=== PATIENT | female | born 1995 | race Caucasian/White ===

== ENCOUNTER 2017-11-21 19:19 | Inpatient (IN) | payer MEDICAID ==
[2017-11-21] MEDS ORDERED: cefTRIAXone 1 GM Vial IVPUSH ONE (19:59)
[2017-11-21] MEDS ORDERED: Ketorolac 30 MG/ML SDV IVPUSH ONE (19:59)
[2017-11-21] MEDS ORDERED: Sodium Chloride 0.9% 1,000 ML IV ONE (20:03)
--- NOTE | 2017-11-21 20:05 | EDM.PDOC ---
ED HPI GENERAL MEDICAL PROBLEM - General Chief Complaint: Genitourinary Problem Stated Complaint: KIDNEY INFECTION/[phone] Time Seen by Provider: 11/21/17 20:00 Source of Information: Reports: Patient History Limitations: Reports: No Limitations - History of Present Illness INITIAL COMMENTS - FREE TEXT/NARRATIVE: pt sleeping arousable states in lot of pain and feels very tired wants to sleep. Sx onset 3 days ago got worse today with h/o pyelo. Bilateral Flank Pain Score (Numeric/FACES): 10 - Related Data Allergies Allergy/AdvReac Type Severity Reaction Status Date / Time No Known Allergies Allergy Verified 11/21/17 19:26 Home Meds: Home Meds . [No Known Home Meds] 11/21/17 [History] Past Medical History Genitourinary History: Reports: Pyelonephritis - Past Surgical History HEENT Surgical History: Reports: Adenoidectomy, Tonsillectomy Social & Family History - Tobacco Use Smoking Status *Q: Current Every Day Smoker Years of Tobacco use: 5 Packs/Tins Daily: 0.5 - Caffeine Use Caffeine Use: Reports: Soda - Recreational Drug Use Recreational Drug Use: No ED ROS GENERAL - Review of Systems Review Of Systems: ROS reveals no pertinent complaints other than HPI. ED EXAM, RENAL/ - Physical Exam Exam: See Below Exam Limited By: No Limitations General Appearance: Alert, Mild Distress, Other (discomfort) Ears: Hearing Grossly Normal Throat/Mouth: Normal Voice, No Airway Compromise Head: Atraumatic Neck: Non-Tender, Full Range of Motion Respiratory/Chest: No Respiratory Distress Cardiovascular: Regular Rate, Rhythm GI/Abdominal: Soft, Non-Tender Back Exam: CVA Tenderness (L), CVA Tenderness (R) Neurological: Alert, Oriented, Normal Cognition, Normal Gait, No Motor/Sensory Deficits Psychiatric: Flat Affect Skin Exam: Warm, Dry, Normal Color Lymphatic: No Adenopathy Course - Vital Signs Last Recorded V/S: Last Vital Signs Temp 37.0 C 11/21/17 19:26 Pulse 122 H 11/21/17 19:26 Resp 18 11/21/17 19:26 BP 136/77 11/21/17 19:26 Pulse Ox 100 11/21/17 19:26 - Orders/Labs/Meds Orders: Active Orders 24 hr Category Date Time Status Abdomen Pelvis w Cont [CT] Urgent Exams 11/21/17 20:18 Taken Labs: Laboratory Tests 11/21/17 11/21/17 11/21/17 Range/Units 19:23 19:23 19:23 WBC (5.0-10.0) 10^3/uL RBC (4.2-5.4) 10^6/uL Hgb (12.0-16.0) g/dL Hct (37.0-47.0) % MCV (80-100) fL MCH (27.0-34.0) pg MCHC (33.0-35.0) g/dL Plt Count (150-450) 10^3/uL Neut % (Auto) (42.2-75.2) % Lymph % (Auto) (20.5-50.1) % [place] % (Auto) (2-8) % Eos % (Auto) (1.0-3.0) % Baso % (Auto) (0.0-1.0) % Sodium (135-145) mmol/L Potassium (3.6-5.0) mmol/L Chloride (101-111) mmol/L Carbon Dioxide (21.0-31.0) mmol/L Anion Gap BUN (7-18) mg/dL Creatinine (0.6-1.3) mg/dL Est Cr Clr Drug Dosing mL/min Estimated GFR (MDRD) BUN/Creatinine Ratio Glucose (74-105) mg/dL Lactic Acid (0.5-2.2) mmol/L Calcium (8.4-10.2) mg/dl Total Bilirubin (0.2-1.0) mg/dL AST (10-42) IU/L ALT (10-60) IU/L Alkaline Phosphatase (42-121) IU/L Total Protein (6.7-8.2) g/dl Albumin (3.2-5.5) g/dl Globulin Albumin/Globulin Ratio Urine Color Yellow (YELLOW) Urine Appearance Slightly cloudy (CLEAR) Urine pH 6.0 (5.0-9.0) Ur Specific [place] 1.025 (1.005-1.030) Urine Protein 100 H (NEGATIVE) Urine Glucose (UA) Negative (NEGATIVE) Urine Ketones >=160 H (NEGATIVE) Urine Occult Blood Moderate H (NEGATIVE) Urine Nitrite Negative (NEGATIVE) Urine Bilirubin Negative (NEGATIVE) Urine Urobilinogen 0.2 (0.2-1.0) mg/dL Ur Leukocyte Esterase Negative (NEGATIVE) Urine RBC 5-10 H /HPF Urine WBC 0-5 (0-5/HPF) /HPF Ur Epithelial Cells Moderate H /HPF Urine Bacteria Many H (0-FEW/HPF) /HPF Urine Mucus Moderate H /LPF Urinalysis Comment Urine HCG, Qual Negative Urine Opiates Screen Negative (NEGATIVE) Ur Oxycodone Screen Negative (NEGATIVE) Urine Methadone Screen Negative (NEGATIVE) Ur Barbiturates Screen Negative (NEGATIVE) U Tricyclic Antidepress Negative (NEGATIVE) Ur Phencyclidine Scrn Negative (NEGATIVE) Ur Amphetamine Screen Positive H (NEGATIVE) U Methamphetamines Scrn Positive H (NEGATIVE) Urine MDMA Screen Negative (NEGATIVE) U Benzodiazepines Scrn Negative (NEGATIVE) Urine Cocaine Screen Negative (NEGATIVE) U Marijuana (THC) Screen Positive H (NEGATIVE) 11/21/17 11/21/17 11/21/17 Range/Units 19:52 19:52 19:52 WBC 21.6 H (5.0-10.0) 10^3/uL RBC 5.19 (4.2-5.4) 10^6/uL Hgb 14.4 (12.0-16.0) g/dL Hct 42.9 (37.0-47.0) % MCV 82.7 (80-100) fL MCH 27.7 (27.0-34.0) pg MCHC 33.6 (33.0-35.0) g/dL Plt Count 241 (150-450) 10^3/uL Neut % (Auto) 86.7 H (42.2-75.2) % Lymph % (Auto) 7.2 L (20.5-50.1) % [place] % (Auto) 6.0 (2-8) % Eos % (Auto) 0.0 L (1.0-3.0) % Baso % (Auto) 0.1 (0.0-1.0) % Sodium 130 L (135-145) mmol/L Potassium 3.5 L (3.6-5.0) mmol/L Chloride 94 L (101-111) mmol/L Carbon Dioxide 26.0 (21.0-31.0) mmol/L Anion Gap 13.5 BUN 5 L (7-18) mg/dL Creatinine 0.7 (0.6-1.3) mg/dL Est Cr Clr Drug Dosing 113.43 mL/min Estimated GFR (MDRD) > 60 BUN/Creatinine Ratio 7.14 Glucose 107 H (74-105) mg/dL Lactic Acid 1.2 (0.5-2.2) mmol/L Calcium 9.1 (8.4-10.2) mg/dl Total Bilirubin 1.0 (0.2-1.0) mg/dL AST 18 (10-42) IU/L ALT 13 (10-60) IU/L Alkaline Phosphatase 78 (42-121) IU/L Total Protein 8.6 H (6.7-8.2) g/dl Albumin 4.1 (3.2-5.5) g/dl Globulin 4.5 Albumin/Globulin Ratio 0.91 Urine Color (YELLOW) Urine Appearance (CLEAR) Urine pH (5.0-9.0) Ur Specific [place] (1.005-1.030) Urine Protein (NEGATIVE) Urine Glucose (UA) (NEGATIVE) Urine Ketones (NEGATIVE) Urine Occult Blood (NEGATIVE) Urine Nitrite (NEGATIVE) Urine Bilirubin (NEGATIVE) Urine Urobilinogen (0.2-1.0) mg/dL Ur Leukocyte Esterase (NEGATIVE) Urine RBC /HPF Urine WBC (0-5/HPF) /HPF Ur Epithelial Cells /HPF Urine Bacteria (0-FEW/HPF) /HPF Urine Mucus /LPF Urinalysis Comment Urine HCG, Qual Urine Opiates Screen (NEGATIVE) Ur Oxycodone Screen (NEGATIVE) Urine Methadone Screen (NEGATIVE) Ur Barbiturates Screen (NEGATIVE) U Tricyclic Antidepress (NEGATIVE) Ur Phencyclidine Scrn (NEGATIVE) Ur Amphetamine Screen (NEGATIVE) U Methamphetamines Scrn (NEGATIVE) Urine MDMA Screen (NEGATIVE) U Benzodiazepines Scrn (NEGATIVE) Urine Cocaine Screen (NEGATIVE) U Marijuana (THC) Screen (NEGATIVE) Meds: Medications Discontinued Medications Generic Name Dose Route Start Last Admin Trade Name Yahir PRN Reason Stop Dose Admin Ceftriaxone Sodium 1 gm 11/21/17 19:59 11/21/17 20:10 Rocephin IVPUSH 11/21/17 20:00 1 gm ONETIME ONE Administration Sodium Chloride 1,000 mls @ 999 mls/hr 11/21/17 20:03 11/21/17 20:09 Normal Saline IV 11/21/17 21:03 999 mls/hr .BOLUS ONE Administration Iopamidol 100 ml 11/21/17 20:18 11/21/17 20:25 Isovue-300 (61%) IVPUSH 11/21/17 20:19 100 ml ONETIME ONE Administration Ketorolac Tromethamine 15 mg 11/21/17 19:59 11/21/17 20:09 Toradol IVPUSH 11/21/17 20:00 15 mg ONETIME ONE Administration - Re-Assessments/Exams Free Text/Narrative Re-Assessment/Exam: 11/21/17 21:[address] Corral who kindly admitted pt. Departure - Departure Time of Disposition: 21:43 Disposition: Admitted As Inpatient 66 Condition: Good Clinical Impression: Pyelonephritis - Discharge Information Forms: ED Department Discharge - My Orders Last 24 Hours: My Active Orders 11/21/17 20:18 Abdomen Pelvis w Cont [CT] Urgent - Assessment/Plan Last 24 Hours: My Active Orders 11/21/17 20:18 Abdomen Pelvis w Cont [CT] Urgent
[2017-11-21 20:16] LABS: ANION GAP 13.5; CHLORIDE,CL 94 mmol/L (101-111); SODIUM,NA 130 mmol/L (135-145)
[2017-11-21] MEDS ORDERED: Iopamidol 612 MG/ML 100 ML Bottle IVPUSH ONE (20:18)
[2017-11-21] MEDS ORDERED: Potassium Chloride 10 MEQ Tab.ER PO ONE (22:32)
[2017-11-21] MEDS ORDERED: Ibuprofen 400 MG Tab PO PRN (22:33)
[2017-11-21] MEDS ORDERED: Ketorolac 30 MG/ML SDV IM PRN (22:33)
[2017-11-21] MEDS ORDERED: Ondansetron 4 MG/2 ML SDV IV PRN (22:37)
--- NOTE | 2017-11-21 22:49 | PCM.HP ---
H&P History of Present Illness - General Date of Service: 11/21/17 Admit Problem/Dx: Admission Diagnosis/Problem Admission Diagnosis/Problem Pyelonephritis Source of Information: Patient History Limitations: Reports: No Limitations - History of Present Illness Initial Comments - Free Text/Narative: 22 yo F with PMH of cigarette smoking who presents with fever, flank pain, dysuria of 3 days duration. Patient says that she started feeling unwell 3 days ago. She couldn't get out of bed and had a lot of fatigue and malaise. She says she has had fever associated with chills and rigors She also has had dysuria described as an uncomfortable feeling when she urinates She had some nausea and vomiting yesterday, but this has resolved. Also has flank pain on both right and left sides that radiates into the groin NO hx of IVDU according to the patient Smokes cigarettes Bilateral Flank Pain Score (Numeric/FACES): 8 - Related Data Allergies/Adverse Reactions: Allergies Allergy/AdvReac Type Severity Reaction Status Date / Time No Known Allergies Allergy Verified 11/21/17 21:56 Home Medications: Home Meds . [No Known Home Meds] 11/21/17 [History] Past Medical History Genitourinary History: Reports: Pyelonephritis - Infectious Disease History Infectious Disease History: Reports: Chicken Pox - Past Surgical History HEENT Surgical History: Reports: Adenoidectomy, Tonsillectomy Social & Family History - Tobacco Use Smoking Status *Q: Current Every Day Smoker Years of Tobacco use: 5 Packs/Tins Daily: 0.5 Second Hand Smoke Exposure: Yes - Caffeine Use Caffeine Use: Reports: None - Recreational Drug Use Recreational Drug Use: No H&P Review of Systems - Review of Systems: Review Of Systems: ROS reveals no pertinent complaints other than HPI. General: Reports: Fever HEENT: Reports: No Symptoms. Denies: Sore Throat Pulmonary: Reports: No Symptoms. Denies: Shortness of Breath Cardiovascular: Reports: No Symptoms. Denies: Chest Pain Gastrointestinal: Reports: No Symptoms. Denies: Abdominal Pain Genitourinary: Reports: Dysuria, Flank Pain Musculoskeletal: Reports: No Symptoms Skin: Reports: No Symptoms Exam - Exam Exam: See Below - Vital Signs Vital Signs: Last Vital Signs Temp 36.9 C 11/21/17 21:55 Pulse 126 H 11/21/17 21:55 Resp 16 11/21/17 21:55 BP 112/75 11/21/17 21:55 Pulse Ox 100 11/21/17 21:55 Weight: 90.435 kg - Exam General: Alert, Oriented HEENT: Conjunctiva Clear, EACs Clear Neck: Supple, Trachea Midline Lungs: Clear to Auscultation, Normal Respiratory Effort Cardiovascular: Regular Rate, Regular Rhythm GI/Abdominal Exam: Other (positive CVA tenderness bilaterally) - Patient Data Lab Results Last 24 hrs: Laboratory Results - last 24 hr 11/21/17 11/21/17 11/21/17 Range/Units 19:23 19:23 19:23 WBC (5.0-10.0) 10^3/uL RBC (4.2-5.4) 10^6/uL Hgb (12.0-16.0) g/dL Hct (37.0-47.0) % MCV (80-100) fL MCH (27.0-34.0) pg MCHC (33.0-35.0) g/dL Plt Count (150-450) 10^3/uL Neut % (Auto) (42.2-75.2) % Lymph % (Auto) (20.5-50.1) % [place] % (Auto) (2-8) % Eos % (Auto) (1.0-3.0) % Baso % (Auto) (0.0-1.0) % Sodium (135-145) mmol/L Potassium (3.6-5.0) mmol/L Chloride (101-111) mmol/L Carbon Dioxide (21.0-31.0) mmol/L Anion Gap BUN (7-18) mg/dL Creatinine (0.6-1.3) mg/dL Est Cr Clr Drug Dosing mL/min Estimated GFR (MDRD) BUN/Creatinine Ratio Glucose (74-105) mg/dL Lactic Acid (0.5-2.2) mmol/L Calcium (8.4-10.2) mg/dl Total Bilirubin (0.2-1.0) mg/dL AST (10-42) IU/L ALT (10-60) IU/L Alkaline Phosphatase (42-121) IU/L Total Protein (6.7-8.2) g/dl Albumin (3.2-5.5) g/dl Globulin Albumin/Globulin Ratio Urine Color Yellow (YELLOW) Urine Appearance Slightly cloudy (CLEAR) Urine pH 6.0 (5.0-9.0) Ur Specific [place] 1.025 (1.005-1.030) Urine Protein 100 H (NEGATIVE) Urine Glucose (UA) Negative (NEGATIVE) Urine Ketones >=160 H (NEGATIVE) Urine Occult Blood Moderate H (NEGATIVE) Urine Nitrite Negative (NEGATIVE) Urine Bilirubin Negative (NEGATIVE) Urine Urobilinogen 0.2 (0.2-1.0) mg/dL Ur Leukocyte Esterase Negative (NEGATIVE) Urine RBC 5-10 H /HPF Urine WBC 0-5 (0-5/HPF) /HPF Ur Epithelial Cells Moderate H /HPF Urine Bacteria Many H (0-FEW/HPF) /HPF Urine Mucus Moderate H /LPF Urinalysis Comment Urine HCG, Qual Negative Urine Opiates Screen Negative (NEGATIVE) Ur Oxycodone Screen Negative (NEGATIVE) Urine Methadone Screen Negative (NEGATIVE) Ur Barbiturates Screen Negative (NEGATIVE) U Tricyclic Antidepress Negative (NEGATIVE) Ur Phencyclidine Scrn Negative (NEGATIVE) Ur Amphetamine Screen Positive H (NEGATIVE) U Methamphetamines Scrn Positive H (NEGATIVE) Urine MDMA Screen Negative (NEGATIVE) U Benzodiazepines Scrn Negative (NEGATIVE) Urine Cocaine Screen Negative (NEGATIVE) U Marijuana (THC) Screen Positive H (NEGATIVE) 11/21/17 11/21/17 11/21/17 Range/Units 19:52 19:52 19:52 WBC 21.6 H (5.0-10.0) 10^3/uL RBC 5.19 (4.2-5.4) 10^6/uL Hgb 14.4 (12.0-16.0) g/dL Hct 42.9 (37.0-47.0) % MCV 82.7 (80-100) fL MCH 27.7 (27.0-34.0) pg MCHC 33.6 (33.0-35.0) g/dL Plt Count 241 (150-450) 10^3/uL Neut % (Auto) 86.7 H (42.2-75.2) % Lymph % (Auto) 7.2 L (20.5-50.1) % [place] % (Auto) 6.0 (2-8) % Eos % (Auto) 0.0 L (1.0-3.0) % Baso % (Auto) 0.1 (0.0-1.0) % Sodium 130 L (135-145) mmol/L Potassium 3.5 L (3.6-5.0) mmol/L Chloride 94 L (101-111) mmol/L Carbon Dioxide 26.0 (21.0-31.0) mmol/L Anion Gap 13.5 BUN 5 L (7-18) mg/dL Creatinine 0.7 (0.6-1.3) mg/dL Est Cr Clr Drug Dosing 113.43 mL/min Estimated GFR (MDRD) > 60 BUN/Creatinine Ratio 7.14 Glucose 107 H (74-105) mg/dL Lactic Acid 1.2 (0.5-2.2) mmol/L Calcium 9.1 (8.4-10.2) mg/dl Total Bilirubin 1.0 (0.2-1.0) mg/dL AST 18 (10-42) IU/L ALT 13 (10-60) IU/L Alkaline Phosphatase 78 (42-121) IU/L Total Protein 8.6 H (6.7-8.2) g/dl Albumin 4.1 (3.2-5.5) g/dl Globulin 4.5 Albumin/Globulin Ratio 0.91 Urine Color (YELLOW) Urine Appearance (CLEAR) Urine pH (5.0-9.0) Ur Specific [place] (1.005-1.030) Urine Protein (NEGATIVE) Urine Glucose (UA) (NEGATIVE) Urine Ketones (NEGATIVE) Urine Occult Blood (NEGATIVE) Urine Nitrite (NEGATIVE) Urine Bilirubin (NEGATIVE) Urine Urobilinogen (0.2-1.0) mg/dL Ur Leukocyte Esterase (NEGATIVE) Urine RBC /HPF Urine WBC (0-5/HPF) /HPF Ur Epithelial Cells /HPF Urine Bacteria (0-FEW/HPF) /HPF Urine Mucus /LPF Urinalysis Comment Urine HCG, Qual Urine Opiates Screen (NEGATIVE) Ur Oxycodone Screen (NEGATIVE) Urine Methadone Screen (NEGATIVE) Ur Barbiturates Screen (NEGATIVE) U Tricyclic Antidepress (NEGATIVE) Ur Phencyclidine Scrn (NEGATIVE) Ur Amphetamine Screen (NEGATIVE) U Methamphetamines Scrn (NEGATIVE) Urine MDMA Screen (NEGATIVE) U Benzodiazepines Scrn (NEGATIVE) Urine Cocaine Screen (NEGATIVE) U Marijuana (THC) Screen (NEGATIVE) Result Diagrams: 11/21/17 19:52 11/21/17 19:52 Imaging Impressions Last 24 hrs: CT scan of abd pelvis: right sided pyelonephritis Problem List Initiated/Reviewed/Updated: Yes Orders Last 24hrs: Active Orders 24 hr Category Date Time Status Patient Status [ADT] Routine ADT 11/21/17 22:33 Ordered Ambulate [RC] ASDIRECTED Care 11/21/17 22:33 Ordered Oxygen Therapy [RC] PRN Care 11/21/17 22:33 Ordered VTE/DVT Education [RC] PER UNIT ROUTINE Care 11/21/17 22:33 Ordered Vital Signs [RC] Q4H Care 11/21/17 22:33 Ordered Regular Diet [DIET] Diet 11/21/17 Breakfast Ordered BASIC METABOLIC PANEL,BMP [CHEM] AM Lab 11/22/17 05:11 Ordered CBC WITH AUTO DIFF [HEME] AM Lab 11/22/17 05:11 Ordered CULTURE BLOOD [BC] Stat Lab 11/21/17 22:30 Ordered CULTURE BLOOD [BC] Stat Lab 11/21/17 22:30 Ordered CULTURE URINE [RM] Routine Lab 11/21/17 22:31 Ordered Acetaminophen [Tylenol] Med 11/21/17 22:33 Ordered 650 mg PO Q4H PRN Enoxaparin [Lovenox] Med 11/22/17 09:00 Ordered 40 mg SUBCUT DAILY Ibuprofen [Motrin] Med 11/21/17 22:33 Ordered 400 mg PO Q6H PRN Ketorolac [Toradol] Med 11/21/17 22:33 Ordered 15 mg IM Q6H PRN Lactated Ringers @ 125 MLS/HR(1000ml) Med 11/21/17 22:45 Ordered Lactated Ringers [Ringers, Lactated] 1,000 ml IV ASDIRECTED Ondansetron [Zofran] Med 11/21/17 22:37 Ordered 4 mg IV Q4H PRN Potassium Chloride [Klor-Con 10] Med 11/21/17 22:32 Once 40 meq PO ONETIME ONE cefTRIAXone [Rocephin] 1,000 mg Med 11/22/17 09:00 Ordered Sodium Chloride 0.9% [Normal Saline] 100 ml IV Q24H Blood Culture x2 Reflex Set [OM.PC] Stat Oth 11/21/17 22:30 Ordered Resuscitation Status Routine Resus Stat 11/21/17 22:33 Ordered Medication Orders Acetaminophen (Tylenol) 650 mg PO Q4H PRN PRN Reason: Pain (Mild 1-3)/fever Enoxaparin Sodium (Lovenox) 40 mg SUBCUT DAILY CHELY Ceftriaxone Sodium 1,000 mg/ (Sodium Chloride) 100 mls @ 200 mls/hr IV Q24H CHELY Lactated Ringer's (Ringers, Lactated) 1,000 mls @ 125 mls/hr IV ASDIRECTED CHELY Ibuprofen (Motrin) 400 mg PO Q6H PRN PRN Reason: Pain (moderate 4-6) Ketorolac Tromethamine (Toradol) 15 mg IM Q6H PRN PRN Reason: Pain (severe 7-10) Ondansetron HCl (Zofran) 4 mg IV Q4H PRN PRN Reason: Nausea/Vomiting Potassium Chloride (Klor-Con 10) 40 meq PO ONETIME ONE Stop: 11/21/17 22:33 Assessment/Plan Comment:: # Pyelonephritis # Sepsis POA blood culture x 2, urine culture IV fluid hydration IV ceftriaxone monitor vital signs closely Pain mgt IV Zofran PRN nausea and vomiting # Cigarette smoking Discussed ill effects of smoking with the patient and encouraged her to quit She refused nicotine patch # Hypokalemia replenish potassium orally # DVT ppx SC lovenox
[2017-11-21] MEDS: Lactated Ringers 1,000 ML IV SCH (23:07)
[2017-11-21] MEDS: Acetaminophen 325 MG Tab PO PRN (23:07)
[2017-11-22] MEDS: Lactated Ringers 1,000 ML IV SCH ×2 (06:59→15:42)
[2017-11-22 07:40] LABS: ANION GAP 13.8; CHLORIDE,CL 100 mmol/L (101-111); SODIUM,NA 130 mmol/L (135-145)
[2017-11-22] MEDS: Enoxaparin 40 MG/0.4 ML Syringe SUBCUT SCH (08:50)
--- NOTE | 2017-11-22 09:06 | PCM.PN ---
- General Info Date of Service: 11/22/17 Admission Dx/Problem (Free Text): Admission Diagnosis/Problem Admission Diagnosis/Problem Pyelonephritis Subjective Update: Patient says she feels "crappy" this morning. Not febrile overnight Still complains of flank pain - Review of Systems General: Denies: Fever HEENT: Reports: No Symptoms Pulmonary: Reports: No Symptoms Cardiovascular: Reports: No Symptoms Gastrointestinal: Reports: No Symptoms Genitourinary: Reports: Dysuria, Flank Pain Musculoskeletal: Reports: No Symptoms Skin: Reports: No Symptoms - Patient Data Vitals - Most Recent: Last Vital Signs Temp 37.6 C 11/22/17 08:16 Pulse 124 H 11/22/17 08:16 Resp 20 11/22/17 08:16 BP 122/63 11/22/17 08:16 Pulse Ox 99 11/22/17 08:16 Weight - Most Recent: 90.435 kg I&O - Last 24 Hours: Intake & Output 11/21/17 11/22/17 11/22/17 22:59 06:59 14:59 Intake Total 1540 996 Output Total 800 Balance 740 996 Lab Results Last 24 Hours: Laboratory Results - last 24 hr 11/21/17 11/21/17 11/21/17 Range/Units 19:23 19:23 19:23 WBC (5.0-10.0) 10^3/uL RBC (4.2-5.4) 10^6/uL Hgb (12.0-16.0) g/dL Hct (37.0-47.0) % MCV (80-100) fL MCH (27.0-34.0) pg MCHC (33.0-35.0) g/dL Plt Count (150-450) 10^3/uL Neut % (Auto) (42.2-75.2) % Lymph % (Auto) (20.5-50.1) % [place] % (Auto) (2-8) % Eos % (Auto) (1.0-3.0) % Baso % (Auto) (0.0-1.0) % Sodium (135-145) mmol/L Potassium (3.6-5.0) mmol/L Chloride (101-111) mmol/L Carbon Dioxide (21.0-31.0) mmol/L Anion Gap BUN (7-18) mg/dL Creatinine (0.6-1.3) mg/dL Est Cr Clr Drug Dosing mL/min Estimated GFR (MDRD) BUN/Creatinine Ratio Glucose (74-105) mg/dL Lactic Acid (0.5-2.2) mmol/L Calcium (8.4-10.2) mg/dl Total Bilirubin (0.2-1.0) mg/dL AST (10-42) IU/L ALT (10-60) IU/L Alkaline Phosphatase (42-121) IU/L Total Protein (6.7-8.2) g/dl Albumin (3.2-5.5) g/dl Globulin Albumin/Globulin Ratio Urine Color Yellow (YELLOW) Urine Appearance Slightly cloudy (CLEAR) Urine pH 6.0 (5.0-9.0) Ur Specific [place] 1.025 (1.005-1.030) Urine Protein 100 H (NEGATIVE) Urine Glucose (UA) Negative (NEGATIVE) Urine Ketones >=160 H (NEGATIVE) Urine Occult Blood Moderate H (NEGATIVE) Urine Nitrite Negative (NEGATIVE) Urine Bilirubin Negative (NEGATIVE) Urine Urobilinogen 0.2 (0.2-1.0) mg/dL Ur Leukocyte Esterase Negative (NEGATIVE) Urine RBC 5-10 H /HPF Urine WBC 0-5 (0-5/HPF) /HPF Ur Epithelial Cells Moderate H /HPF Urine Bacteria Many H (0-FEW/HPF) /HPF Urine Mucus Moderate H /LPF Urinalysis Comment Urine HCG, Qual Negative Urine Opiates Screen Negative (NEGATIVE) Ur Oxycodone Screen Negative (NEGATIVE) Urine Methadone Screen Negative (NEGATIVE) Ur Barbiturates Screen Negative (NEGATIVE) U Tricyclic Antidepress Negative (NEGATIVE) Ur Phencyclidine Scrn Negative (NEGATIVE) Ur Amphetamine Screen Positive H (NEGATIVE) U Methamphetamines Scrn Positive H (NEGATIVE) Urine MDMA Screen Negative (NEGATIVE) U Benzodiazepines Scrn Negative (NEGATIVE) Urine Cocaine Screen Negative (NEGATIVE) U Marijuana (THC) Screen Positive H (NEGATIVE) 11/21/17 11/21/17 11/21/17 Range/Units 19:52 19:52 19:52 WBC 21.6 H (5.0-10.0) 10^3/uL RBC 5.19 (4.2-5.4) 10^6/uL Hgb 14.4 (12.0-16.0) g/dL Hct 42.9 (37.0-47.0) % MCV 82.7 (80-100) fL MCH 27.7 (27.0-34.0) pg MCHC 33.6 (33.0-35.0) g/dL Plt Count 241 (150-450) 10^3/uL Neut % (Auto) 86.7 H (42.2-75.2) % Lymph % (Auto) 7.2 L (20.5-50.1) % [place] % (Auto) 6.0 (2-8) % Eos % (Auto) 0.0 L (1.0-3.0) % Baso % (Auto) 0.1 (0.0-1.0) % Sodium 130 L (135-145) mmol/L Potassium 3.5 L (3.6-5.0) mmol/L Chloride 94 L (101-111) mmol/L Carbon Dioxide 26.0 (21.0-31.0) mmol/L Anion Gap 13.5 BUN 5 L (7-18) mg/dL Creatinine 0.7 (0.6-1.3) mg/dL Est Cr Clr Drug Dosing 113.43 mL/min Estimated GFR (MDRD) > 60 BUN/Creatinine Ratio 7.14 Glucose 107 H (74-105) mg/dL Lactic Acid 1.2 (0.5-2.2) mmol/L Calcium 9.1 (8.4-10.2) mg/dl Total Bilirubin 1.0 (0.2-1.0) mg/dL AST 18 (10-42) IU/L ALT 13 (10-60) IU/L Alkaline Phosphatase 78 (42-121) IU/L Total Protein 8.6 H (6.7-8.2) g/dl Albumin 4.1 (3.2-5.5) g/dl Globulin 4.5 Albumin/Globulin Ratio 0.91 Urine Color (YELLOW) Urine Appearance (CLEAR) Urine pH (5.0-9.0) Ur Specific [place] (1.005-1.030) Urine Protein (NEGATIVE) Urine Glucose (UA) (NEGATIVE) Urine Ketones (NEGATIVE) Urine Occult Blood (NEGATIVE) Urine Nitrite (NEGATIVE) Urine Bilirubin (NEGATIVE) Urine Urobilinogen (0.2-1.0) mg/dL Ur Leukocyte Esterase (NEGATIVE) Urine RBC /HPF Urine WBC (0-5/HPF) /HPF Ur Epithelial Cells /HPF Urine Bacteria (0-FEW/HPF) /HPF Urine Mucus /LPF Urinalysis Comment Urine HCG, Qual Urine Opiates Screen (NEGATIVE) Ur Oxycodone Screen (NEGATIVE) Urine Methadone Screen (NEGATIVE) Ur Barbiturates Screen (NEGATIVE) U Tricyclic Antidepress (NEGATIVE) Ur Phencyclidine Scrn (NEGATIVE) Ur Amphetamine Screen (NEGATIVE) U Methamphetamines Scrn (NEGATIVE) Urine MDMA Screen (NEGATIVE) U Benzodiazepines Scrn (NEGATIVE) Urine Cocaine Screen (NEGATIVE) U Marijuana (THC) Screen (NEGATIVE) 11/22/17 11/22/17 Range/Units 07:11 07:11 WBC 20.7 H (5.0-10.0) 10^3/uL RBC 4.68 (4.2-5.4) 10^6/uL Hgb 13.0 (12.0-16.0) g/dL Hct 38.7 (37.0-47.0) % MCV 82.7 (80-100) fL MCH 27.8 (27.0-34.0) pg MCHC 33.6 (33.0-35.0) g/dL Plt Count 215 (150-450) 10^3/uL Neut % (Auto) 84.5 H (42.2-75.2) % Lymph % (Auto) 6.2 L (20.5-50.1) % [place] % (Auto) 9.2 H (2-8) % Eos % (Auto) 0.0 L (1.0-3.0) % Baso % (Auto) 0.1 (0.0-1.0) % Sodium 130 L (135-145) mmol/L Potassium 3.8 (3.6-5.0) mmol/L Chloride 100 L (101-111) mmol/L Carbon Dioxide 20.0 L (21.0-31.0) mmol/L Anion Gap 13.8 BUN 6 L (7-18) mg/dL Creatinine 0.7 (0.6-1.3) mg/dL Est Cr Clr Drug Dosing 113.43 mL/min Estimated GFR (MDRD) > 60 BUN/Creatinine Ratio Glucose 108 H (74-105) mg/dL Lactic Acid (0.5-2.2) mmol/L Calcium 8.5 (8.4-10.2) mg/dl Total Bilirubin (0.2-1.0) mg/dL AST (10-42) IU/L ALT (10-60) IU/L Alkaline Phosphatase (42-121) IU/L Total Protein (6.7-8.2) g/dl Albumin (3.2-5.5) g/dl Globulin Albumin/Globulin Ratio Urine Color (YELLOW) Urine Appearance (CLEAR) Urine pH (5.0-9.0) Ur Specific [place] (1.005-1.030) Urine Protein (NEGATIVE) Urine Glucose (UA) (NEGATIVE) Urine Ketones (NEGATIVE) Urine Occult Blood (NEGATIVE) Urine Nitrite (NEGATIVE) Urine Bilirubin (NEGATIVE) Urine Urobilinogen (0.2-1.0) mg/dL Ur Leukocyte Esterase (NEGATIVE) Urine RBC /HPF Urine WBC (0-5/HPF) /HPF Ur Epithelial Cells /HPF Urine Bacteria (0-FEW/HPF) /HPF Urine Mucus /LPF Urinalysis Comment Urine HCG, Qual Urine Opiates Screen (NEGATIVE) Ur Oxycodone Screen (NEGATIVE) Urine Methadone Screen (NEGATIVE) Ur Barbiturates Screen (NEGATIVE) U Tricyclic Antidepress (NEGATIVE) Ur Phencyclidine Scrn (NEGATIVE) Ur Amphetamine Screen (NEGATIVE) U Methamphetamines Scrn (NEGATIVE) Urine MDMA Screen (NEGATIVE) U Benzodiazepines Scrn (NEGATIVE) Urine Cocaine Screen (NEGATIVE) U Marijuana (THC) Screen (NEGATIVE) Med Orders - Current: Current Medications Acetaminophen (Tylenol) 650 mg PO Q4H PRN PRN Reason: Pain (Mild 1-3)/fever Last Admin: 11/21/17 23:07 Dose: 650 mg Enoxaparin Sodium (Lovenox) 40 mg SUBCUT DAILY [facility] Last Admin: 11/22/17 08:50 Dose: Not Given Ceftriaxone Sodium 1 gm/ (Sodium Chloride) 100 mls @ 200 mls/hr IV Q24H [facility] Lactated Ringer's (Ringers, Lactated) 1,000 mls @ 125 mls/hr IV ASDIRECTED [facility] Last Admin: 11/22/17 06:59 Dose: 125 mls/hr Ibuprofen (Motrin) 400 mg PO Q6H PRN PRN Reason: Pain (moderate 4-6) Ketorolac Tromethamine (Toradol) 15 mg IM Q6H PRN PRN Reason: Pain (severe 7-10) Ondansetron HCl (Zofran) 4 mg IV Q4H PRN PRN Reason: Nausea/Vomiting Discontinued Medications Ceftriaxone Sodium (Rocephin) 1 gm IVPUSH ONETIME ONE Stop: 11/21/17 20:00 Last Admin: 11/21/17 20:10 Dose: 1 gm Sodium Chloride (Normal Saline) 1,000 mls @ 999 mls/hr IV .BOLUS ONE Stop: 11/21/17 21:03 Last Admin: 11/21/17 20:09 Dose: 999 mls/hr Iopamidol (Isovue-300 (61%)) 100 ml IVPUSH ONETIME ONE Stop: 11/21/17 20:19 Last Admin: 11/21/17 20:25 Dose: 100 ml Ketorolac Tromethamine (Toradol) 15 mg IVPUSH ONETIME ONE Stop: 11/21/17 20:00 Last Admin: 11/21/17 20:09 Dose: 15 mg Potassium Chloride (Klor-Con 10) 40 meq PO ONETIME ONE Stop: 11/21/17 22:33 Last Admin: 11/21/17 23:06 Dose: 40 meq - Exam General: Alert, Oriented HEENT: Pupils Equal Lungs: Clear to Auscultation Cardiovascular: Regular Rate, Regular Rhythm GI/Abdominal Exam: Normal Bowel Sounds, Other (positive CVA tenderness) - Problem List Review Problem List Initiated/Reviewed/Updated: Yes - My Orders Last 24 Hours: My Active Orders 11/21/17 19:23 CULTURE URINE [RM] Routine 11/21/17 22:30 Blood Culture x2 Reflex Set [OM.PC] Stat 11/21/17 22:33 Patient Status [ADT] Routine Ambulate [RC] ASDIRECTED Oxygen Therapy [RC] PRN VTE/DVT Education [RC] PER UNIT ROUTINE Vital Signs [RC] Q4H Acetaminophen [Tylenol] 650 mg PO Q4H PRN Ibuprofen [Motrin] 400 mg PO Q6H PRN Ketorolac [Toradol] 15 mg IM Q6H PRN Resuscitation Status Routine 11/21/17 22:37 Ondansetron [Zofran] 4 mg IV Q4H PRN 11/21/17 22:45 Lactated Ringers [Ringers, Lactated] 1,000 ml IV ASDIRECTED 11/21/17 23:00 CULTURE BLOOD [BC] Stat 11/21/17 23:15 CULTURE BLOOD [BC] Stat 11/22/17 09:00 Enoxaparin [Lovenox] 40 mg SUBCUT DAILY 11/22/17 20:00 cefTRIAXone [Rocephin] 1 gm Sodium Chloride 0.9% [Normal Saline] 100 ml IV Q24H 11/23/17 05:11 BASIC METABOLIC PANEL,BMP [CHEM] AM CBC WITH AUTO DIFF [HEME] AM - Plan Plan:: # Pyelonephritis # Sepsis POA follow up on blood culture x 2, urine culture IV fluid hydration IV ceftriaxone monitor vital signs closely Pain mgt IV Zofran PRN nausea and vomiting # Cigarette smoking Discussed ill effects of smoking with the patient and encouraged her to quit She refused nicotine patch # Hypokalemia, resolved # DVT ppx SC lovenox
[2017-11-22] MEDS: Acetaminophen 325 MG Tab PO PRN ×2 (11:50→17:01)
[2017-11-22] MEDS ORDERED: cefTRIAXone 1 GM in Sodium Chloride 0.9% 100 ML IV SCH (20:00)
[2017-11-23] MEDS: Lactated Ringers 1,000 ML IV SCH ×2 (00:26→08:30)
[2017-11-23] MEDS: Acetaminophen 325 MG Tab PO PRN (06:39)
[2017-11-23 06:53] LABS: ANION GAP 11.8; CHLORIDE,CL 105 mmol/L (101-111); SODIUM,NA 136 mmol/L (135-145)
[2017-11-23] MEDS: Enoxaparin 40 MG/0.4 ML Syringe SUBCUT SCH (08:35)
[2017-11-23] MEDS ORDERED: Ketorolac 30 MG/ML SDV IVPUSH PRN (09:45)
--- NOTE | 2017-11-23 11:18 | PCM.DCSUM1 ---
Discharge Summary - Hospital Course Free Text/Narrative:: 22 yo F with PMH of cigarette smoking who presents with fever, flank pain, dysuria of [address] abd showed RT Pyelonephritis. Was treated with IV ceftriaxone for 3 days in the hospital and symptoms improved Blood cultures were negative. Urine cx grew gram pos cocci. Was discharged on oral Keflex and oral Cipro to complete an additional seven days course - Discharge Data Discharge Date: 11/23/17 Discharge Disposition: Home, Self-Care 01 Condition: Good - Patient Instructions Diet: Regular Diet as Tolerated Activity: As Tolerated Notify Provider of: Fever - Discharge Plan Prescriptions/Med Rec: Acetaminophen [Tylenol Extra Strength] 500 mg PO TID PRN 7 Days #21 tablet PRN Reason: Pain cephALEXin [Keflex] 500 mg PO Q8H 7 Days #21 cap Ciprofloxacin [Ciprofloxacin HCl] 250 mg PO BID 7 Days #14 tab Home Medications: Home Meds Acetaminophen [Tylenol Extra Strength] 500 mg PO TID PRN 7 Days #21 tablet 11/23 [Rx] Ciprofloxacin [Ciprofloxacin HCl] 250 mg PO BID 7 Days #14 tab 11/23/17 [Rx] cephALEXin [Keflex] 500 mg PO Q8H 7 Days #21 cap 11/23/17 [Rx] Patient Handouts: Pyelonephritis, Adult, [id number] - Discharge Summary/Plan Comment DC Time >30 min.: Yes - General Info Admission Dx/Problem (Free Text: Admission Diagnosis/Problem Admission Diagnosis/Problem Pyelonephritis Subjective Update: Not febrile overnight Symptoms have improved - Review of Systems General: Denies: Fever HEENT: Reports: No Symptoms Pulmonary: Reports: No Symptoms Cardiovascular: Reports: No Symptoms Gastrointestinal: Reports: No Symptoms Genitourinary: Denies: Dysuria - Patient Data Vitals - Most Recent: Last Vital Signs Temp 36.5 C 11/23/17 11:00 Pulse 95 11/23/17 11:00 Resp 20 11/23/17 11:00 BP 114/55 L 11/23/17 11:00 Pulse Ox 99 11/23/17 11:00 Weight - Most Recent: 90.435 kg I&O - Last 24 hours: Intake & Output 11/22/17 11/23/17 11/23/17 22:59 06:59 14:59 Intake Total 2164 2455 1000 Output Total 1250 975 Balance 914 1480 1000 Lab Results - Last 24 hrs: Laboratory Results - last 24 hr 11/23/17 11/23/17 Range/Units 06:23 06:23 WBC 11.4 H (5.0-10.0) 10^3/uL RBC 4.19 L (4.2-5.4) 10^6/uL Hgb 11.6 L (12.0-16.0) g/dL Hct 35.0 L (37.0-47.0) % MCV 83.5 (80-100) fL MCH 27.7 (27.0-34.0) pg MCHC 33.1 (33.0-35.0) g/dL Plt Count 175 (150-450) 10^3/uL Neut % (Auto) 58.1 (42.2-75.2) % Lymph % (Auto) 24.7 (20.5-50.1) % [place] % (Auto) 16.5 H (2-8) % Eos % (Auto) 0.5 L (1.0-3.0) % Baso % (Auto) 0.2 (0.0-1.0) % Sodium 136 (135-145) mmol/L Potassium 3.8 (3.6-5.0) mmol/L Chloride 105 (101-111) mmol/L Carbon Dioxide 23.0 (21.0-31.0) mmol/L Anion Gap 11.8 BUN 6 L (7-18) mg/dL Creatinine 0.6 (0.6-1.3) mg/dL Est Cr Clr Drug Dosing 132.34 mL/min Estimated GFR (MDRD) > 60 Glucose 103 (74-105) mg/dL Calcium 8.3 L (8.4-10.2) mg/dl SUMA Results - Last 24 hrs: Microbiology 11/21/17 19:23 Urine Culture - Preliminary Urine, Clean Catch 11/21/17 23:00 Aerobic Blood Culture - Preliminary Blood - Venous - Lab Draw NO GROWTH AFTER 1 DAY Anaerobic Blood Culture - Preliminary NO GROWTH AFTER 1 DAY 11/21/17 23:15 Aerobic Blood Culture - Preliminary Blood - Venous NO GROWTH AFTER 1 DAY Anaerobic Blood Culture - Preliminary NO GROWTH AFTER 1 DAY Med Orders - Current: Current Medications Acetaminophen (Tylenol) 650 mg PO Q4H PRN PRN Reason: Pain (Mild 1-3)/fever Last Admin: 11/23/17 06:39 Dose: 650 mg Enoxaparin Sodium (Lovenox) 40 mg SUBCUT DAILY [facility] Last Admin: 11/23/17 08:35 Dose: Not Given Ceftriaxone Sodium 1 gm/ (Sodium Chloride) 100 mls @ 200 mls/hr IV Q24H [facility] Last Admin: 11/22/17 20:02 Dose: 200 mls/hr Lactated Ringer's (Ringers, Lactated) 1,000 mls @ 125 mls/hr IV ASDIRECTED [facility] Last Admin: 11/23/17 08:30 Dose: 125 mls/hr Ibuprofen (Motrin) 400 mg PO Q6H PRN PRN Reason: Pain (moderate 4-6) Ketorolac Tromethamine (Toradol) 15 mg IVPUSH Q6H PRN PRN Reason: pain Stop: 11/28/17 09:45 Last Admin: 11/23/17 09:58 Dose: 15 mg Ondansetron HCl (Zofran) 4 mg IV Q4H PRN PRN Reason: Nausea/Vomiting Discontinued Medications Ceftriaxone Sodium (Rocephin) 1 gm IVPUSH ONETIME ONE Stop: 11/21/17 20:00 Last Admin: 11/21/17 20:10 Dose: 1 gm Sodium Chloride (Normal Saline) 1,000 mls @ 999 mls/hr IV .BOLUS ONE Stop: 11/21/17 21:03 Last Admin: 11/21/17 20:09 Dose: 999 mls/hr Iopamidol (Isovue-300 (61%)) 100 ml IVPUSH ONETIME ONE Stop: 11/21/17 20:19 Last Admin: 11/21/17 20:25 Dose: 100 ml Ketorolac Tromethamine (Toradol) 15 mg IVPUSH ONETIME ONE Stop: 11/21/17 20:00 Last Admin: 11/21/17 20:09 Dose: 15 mg Ketorolac Tromethamine (Toradol) 15 mg IM Q6H PRN PRN Reason: Pain (severe 7-10) Last Admin: 11/23/17 00:25 Dose: 15 mg Potassium Chloride (Klor-Con 10) 40 meq PO ONETIME ONE Stop: 11/21/17 22:33 Last Admin: 11/21/17 23:06 Dose: 40 meq - Exam General: Reports: Alert, Oriented HEENT: Reports: Pupils Equal, Pupils Reactive Neck: Reports: Supple Lungs: Reports: Clear to Auscultation Cardiovascular: Reports: Regular Rate, Regular Rhythm GI/Abdominal Exam: Normal Bowel Sounds, Non-Tender
== END 2017-11-23 13:25 | disposition home or self-care (01) | DRG 872 ==
LOC: DL.ED 19:19 → UNDOADMIN 21:50 → DL.MS 21:50
PROVIDERS: ADMIT Hospitalist; ATTEND Hospitalist
DX: A41.9 Sepsis, unspecified organism (principal); N12 Tubulo-interstitial nephritis, not specified as acute or chronic; E87.6 Hypokalemia; F17.210 Nicotine dependence, cigarettes, uncomplicated
CPT/HCPCS: 36415; 74177; 80048; 80053; 80305-QW; 81001; 81025; 83605; 85025; 87040; 87086; 96365; 96366; 96375; 99283; 99285; A9270-GY; J0696; J1885; J7030; J7050; J7120; Q9967